=== PATIENT | male | born 1985 | race Caucasian/White ===

== ENCOUNTER 2021-11-29 21:22 | Emergency (ER) | payer OTHER ==
[~2021-11-29] VITALS: Ht 175.3 cm; Wt 81.6 kg
[2021-11-29 21:34] VITALS: BP 117/64
--- NOTE | 2021-11-29 21:39 | NUR ---
Patient discharged to home in stable condition. Written and verbal after care instructions given. Patient verbalizes understanding of instruction.
[2021-11-29] MEDS ORDERED: PRED20TA PO (21:48)
[2021-11-29] MEDS ORDERED: ALBU8.5H8 INH (21:48)
--- NOTE | 2021-11-29 21:56 | NUR ---
Pt refused to have a breathing treatment.
== END 2021-11-29 21:57 | disposition home or self-care (01) ==
LOC: ER 21:26
DX: J45.901 Unspecified asthma with (acute) exacerbation (principal); Z76.0 Encounter for issue of repeat prescription